=== PATIENT | female | born 1950 | race Caucasian/White ===

== ENCOUNTER 2016-12-06 11:30 | Outpatient (CLI) | payer MEDICARE, OTHER ==
[2016-05-27 17:36] VITALS: BP 130/68
== END 2016-12-06 11:32 ==
LOC: LAB 11:30
PROVIDERS: ATTEND Internal Medicine Cardiovascular Disease
DX: I49.9 Cardiac arrhythmia, unspecified (principal)

== ENCOUNTER 2018-01-19 20:21 | Emergency (ER) | payer MEDICARE, OTHER ==
[2018-01-19] MEDS ORDERED: ONDANSETRON HCL/PF 4 MG/ 2ML VIAL IVP ONE (20:50)
[2018-01-19] MEDS ORDERED: 0.9 % SODIUM CHLORIDE 1,000 ML IV SCH (21:00)
[2018-01-19] MEDS ORDERED: 0.9 % SODIUM CHLORIDE 1,000 ML IV ONE (21:07)
[2018-01-19 21:29] LABS: BASOPHILS % 0.6 (0.0-1.5); EOSINOPHILS % 1.6 % (0.0-6.8); MEAN CORPUSCULAR HEMOGLOBIN 27.4 pg (28.0-34.0); MEAN CORPUSCULAR VOLUME 83.7 fl (80.0-100.0); MONOCYTES % 4.1 % (0.0-11.0)
[2018-01-19 21:38] LABS: eGFR (African) > 60; eGFR (Non-African) > 60
[2018-01-19] MEDS ORDERED: PROMETHAZINE HCL 12.5 MG in 0.9 % SODIUM CHLORIDE 50 ML IV ONE (22:24)
[2018-01-19] MEDS ORDERED: PROMETHAZINE HCL 25 MG/ML VIAL ONE (22:50)
[2018-01-19] MEDS ORDERED: 0.9 % SODIUM CHLORIDE 100 ML IV ONE (22:53)
--- NOTE | 2018-01-19 23:03 | Diagnostic Imaging Report ---
[facility] [id number] [id number] Report Submission Date: Jan 19, 2018 10:56:31 PM CDT Patient Study Name: KRISTAN BLANCHARD Date: Jan 19, 2018 10:26:37 PM CDT Modality Type: DX Gender: F Description: CHEST,ABDOMEN : 52 Institution: [facility] Physician: LEENA HARDEN Obstructive series with chest x-ray CLINICAL HISTORY: Nausea. FINDINGS: Examination of the chest in PA upright view demonstrates the lungs to be clear. Cardiovascular and mediastinal silhouettes are within normal limits for the patient's age. The aorta is atherosclerotic. Examination of the abdomen in supine and upright views demonstrates postoperative changes with bilateral hip replacements. Degenerative changes are seen in the thoracolumbar spine. Gas and stool are present in the colon. There is no evidence of obstruction or free air. IMPRESSION: Thoracolumbar spondylosis. Aortic atherosclerosis. No obstruction or free air. Electronically signed on Jan 19, 2018 10:56:31 PM CDT by: Jovan QUEZADA
[2018-01-20 00:21] VITALS: BP 172/89
--- NOTE | 2018-01-20 02:08 | ED Physician Documentation ---
Nausea/Vomiting/Diarrhea - HISTORIAN Historian: patient - HPI Stated Complaint: extreme nausea/dry mouth Chief Complaint: Nausea,Vomiting,Diarrhea (no diarrhea) Additional Information: began today. Told she has and ear infection. Onset: other (today) Duration: sudden-onset Last known Well Date: 01/18/18 Last Known Well Time: 23:55 Timing: sudden onset Context: denies: out of country travel, bad food, recent trauma Severity: moderate Further Comments: no - Associated Symptoms Vomiting: other (not actually vomiting, very nauseated) Diarrhea: other (none) Abdominal Pain: mild, diffuse - ROS CONST: none CVS/RESP: denies: chest pain, shortness of breath, cough, dry cough, non- productive cough, productive cough, bloody cough GI/: denies: constipation, black stools, bloody urine, bloody stools, dark urine, problems urinating EYES/ENT: none MS/SKIN/LYMPH: denies: joint pain, leg swelling, rash, swollen glands, ankle swelling NEURO/PSYCH: none - PAST HX Past History: other (knee problem) Surgeries/Procedures: none Immunizations: referred to PCP Allergies/Adverse Reactions: Allergies Allergy/AdvReac Type Severity Reaction Status Date / Time meperidine HCl [From Demerol] Allergy Severe Hallucinati Verified 01/19/18 20:49 ons - SOCIAL HX Smoking History: non-smoker Alcohol Use: none Drug Use: none - FAMILY HX Family History: none - VITAL SIGNS Vital Signs: Vital Signs Temp Pulse Resp BP Pulse Ox 97.7 F 98 H 20 172/89 99 01/19/18 20:21 01/20/18 00:18 01/20/18 00:18 01/20/18 00:18 01/20/18 00:18 - REVIEWED ASSESSMENTS Nursing Assessment Reviewed: Yes Vitals Reviewed: Yes Progress - Results/Orders Results/Orders: trop, ekg, ua, cmp, cbc, aas ordered - Progress Progress: pt. given 1 liter ns iv, 8 mg zofran ivp and later 12.5 mg phenergan ivp in ER with significant improvement of symptoms Critical Care Note - Critical Care Note Total Time (mins): 0 ED Results Lab/Radiology - Lab Results Lab Results: Lab Results 01/19/18 01/19/18 01/19/18 21:08 21:08 21:08 WBC 8.80 K/ul K/ul (4.00-12.00) RBC 4.88 M/ul M/ul (3.90-5.20) Hgb 13.4 g/dL g/dL (12.0-16.0) Hct 40.9 % % (34.5-46.5) MCV 83.7 fl fl (80.0-100.0) MCH 27.4 pg L pg (28.0-34.0) MCHC 32.7 g/dL g/dL (30.0-36.0) RDW 13.1 % % (11.3-14.3) Plt Count 331 K/mm3 K/mm3 (130-400) Neut % (Auto) 56.4 % % (39.0-79.0) Lymph % (Auto) 35.8 % % (16.0-50.0) [place] % (Auto) 4.1 % % (0.0-11.0) Eos % (Auto) 1.6 % % (0.0-6.8) Baso % (Auto) 0.6 (0.0-1.5) Neut # (Auto) 5.0 # k/uL # k/uL (1.4-7.7) Lymph # (Auto) 3.2 # k/uL # k/uL (0.6-4.0) [place] # (Auto) 0.4 # k/uL # k/uL (0.0-0.9) Eos # (Auto) 0.1 # k/uL # k/uL (0.0-0.6) Baso # (Auto) 0.1 # k/uL # k/uL (0.0-0.5) Reactive Lymphs % 1.4 % % (0.0-5.0) Reactive Lymphs # 0.1 # k/uL # k/uL (0.0-0.8) Sodium 136 mmol/L mmol/L (136-145) Potassium 3.8 mmol/L mmol/L (3.5-5.1) Chloride 100 mmol/L mmol/L (98-107) Carbon Dioxide 25 mmol/L mmol/L (22-30) BUN 16 mg/dL mg/dL (7-17) Creatinine 0.60 mg/dL mg/dL (0.52-1.04) Estimated Creat Clear 181 Est GFR ( Amer) > 60 (60 - ) Est GFR (Non-Af Amer) > 60 (60 - ) Glucose 112 mg/dL H mg/dL (74-106) Calcium 9.2 mg/dL mg/dL (8.4-10.2) Total Bilirubin 0.2 mg/dL mg/dL (0.2-1.3) AST 16 U/L U/L (15-46) ALT 23 U/L U/L (13-69) Alkaline Phosphatase 83 U/L U/L (38-126) Troponin I < 0.03 ng/mL L ng/mL (0.03-0.06) Total Protein 8.0 g/dL g/dL (6.3-8.2) Albumin 4.6 g/dL g/dL (3.5-5.0) - Radiology Radiology Impressions: aas neg - Orders Orders: ED Orders Category Date Time Status Place IV Lock 1T Care 01/19/18 20:50 Active AAS [ABD SERIES PA CHEST] [RAD] Stat Exams 01/19/18 Completed CBC/PLATELET/DIFF Routine Lab 01/19/18 21:08 Completed CMP Routine Lab 01/19/18 21:08 Completed TROPONIN I (cTnI) Routine Lab 01/19/18 21:08 Completed URINALYSIS Routine Lab 01/19/18 Ordered 0.9 % Sodium Chloride [Normal Saline] 1,000 ml Med 01/19/18 21:00 Discontinued IV .Q1H 0.9 % Sodium Chloride [Normal Saline] 1,000 ml Med 01/19/18 21:07 Discontinued IV .STK-MED 0.9 % Sodium Chloride [Sodium Chloride] 100 ml Med 01/19/18 22:53 Discontinued IV .STK-MED Ondansetron HCl/Pf [Zofran 4 mg/2 ml] Med 01/19/18 20:50 Discontinued 8 mg IVP NOW ONE Promethazine HCl [Phenergan] Med 01/19/18 22:50 Discontinued 25 mg .ROUTE .STK-MED ONE Promethazine HCl [Phenergan] 12.5 mg Med 01/19/18 22:24 Discontinued 0.9 % Sodium Chloride [Sodium Chloride] 50 ml IV NOW EKG WITH COMPARISON Routine Ther 01/19/18 Ordered Nausea Physical Exam - EXAM General Appearance: alert, moderate distress EENT: eye inspection normal, ENT inspection normal, pharynx normal, no signs of dehydration, KEVIN, no nystagmus, TM's nml Neck: normal inspection, thyroid normal, supple Respiratory: no resp distress, chest non-tender, breath sounds normal CVS: reg rate & rhythm, heart sounds normal, equal pulses Abdomen: no organomegaly, tenderness (generalized) Back: non-tender, painless ROM Skin: warm/dry, normal color Extremities: non-tender, normal range of motion, no evidence of injury, no edema Neuro/Psych: oriented X3, CN's nml as tested, motor nml, sensation nml, mood/ affect nml, cognition normal Discharge Clincal Impression: Otitis media Qualifiers: Otitis media type: serous Chronicity: acute Laterality: left Recurrence: not specified as recurrent Qualified Code(s): H65.02 - Acute serous otitis media, left ear Referrals: Dahiana Pearson MD [Primary Care Provider] - 2 Days Comments: pt. discharged with script for phenergan 25 mg #10 1 p.o. qid prn n/v. Pt. to take amoxicillin as prescribed for ear infection. Condition: Stable Disposition: 01 HOME, SELF-CARE Decision to Admit: NO Decision Time: 00:15
== END 2018-01-19 23:55 | disposition home or self-care (01) ==
LOC: ED 20:21
DX: H65.02 Acute serous otitis media, left ear (principal); R11.0 Nausea
CPT/HCPCS: 74022; 80053; 84484; 85025; 93005; J2405; J2550; J7030; 96365; 96366; 96375; 99285; S1016